=== PATIENT | male | born 1945 | race Caucasian/White ===

== ENCOUNTER 2016-06-01 04:15 | Observation (INO) | payer MEDICARE, OTHER ==
[2016-06-01] MEDS ORDERED: Ondansetron INJ* 2 MG/ML VIAL IV PRN (04:44)
[2016-06-01] MEDS ORDERED: Acetaminophen TAB* 325 MG PO PRN (04:44)
[2016-06-01] MEDS ORDERED: Melatonin (NF) 3 MG TAB PO PRN (04:44)
[2016-06-01] MEDS ORDERED: NS 0.9% 1000 ML* 1,000 ML IV SCH (04:45)
[2016-06-01 05:14] LABS: Troponin I 0.02 ng/mL (<0.04)
[2016-06-01] MEDS: Aspirin Low Dose CHEW TAB* 81 MG PO SCH ×2 (06:08→07:28)
--- NOTE | 2016-06-01 06:37 | HP ---
H&P (Free Text) History and Physical: PCP: Pollo Colvin MD Date/Time of Evaluation: 06/01/2016 CC: chest pressure HPI: Mr Gutierrez is a morbidly obese male HX HTN not currently on medication who was playing cards last night around 2229 when he began having what he thought was indigestion with bloating & belching. He took Tums without relief. By 2329 he was noticing a sensation like "being bear hugged" which radiated through to the mid-scapular area. He admits to some mild SOB, but no N/V, sweats, palpitations, or light-headedness. By 99 the pressure sensation was rated at 8 /10 and he awoke his asking her to take him to the ED which is out of character. Upon arrival to [place] ED, he was given a GI cocktail w/o improvement followed by an 81mg chewable and a total of 3 SL nitroglycerin. He reports the 2nd nitro brought his pain down to a 5-6 with the 3rd completely alleviating his pain. His presenting BP there was 218/107, currently 130-140s systolic. Troponin at [place] was 0.02. Given the suspicion of ACS and lack of specialized services a request was made to transfer for further evaluation. Upon arrival to [facility], Mr Gutierrez remains symptom free. He does relate the he and his took a walk yesterday in which he was "more winded" than usual, but did not experience any cardiac symptoms. ECG at [place] showed biphasic T- waves in V2-[address] depression without definitive ST depressions and repeat here appears similar. Repeat troponin here remains 0.02. PMedHx HTN, not currently on meds morbid obesity R meniscal tear Allergies No Known Allergies Allergy (Verified 06/01/16 04:36) Ambulatory Orders Aspirin EC Low Dose* [Ecotrin EC Low Dose 81 MG*] 81 mg PO DAILY 06/01/16 Multiple Vitamin [Multi Vitamin] 1 tab PO DAILY 06/01/16 PSurgHx R knee arthroscopic meniscal repair SocHx: former light smoker, former heavy drinker, no recreational drugs; lives with his ; retired from [employer]; full code status FamHx: positive for sick sinus syndrome in both Mother & Father ROS: as above, otherwise reviewed and all were negative Constitutional: NAD, normally developed, morbidly obese white male vitals: Vital Signs Temp 37.1 C 06/01/16 04:24 Pulse 79 06/01/16 05:00 Resp 16 06/01/16 05:00 BP 141/78 06/01/16 05:00 Pulse Ox 95 06/01/16 05:00 Intake & Output 05/31/16 05/31/16 06/01/16 11:59 23:59 11:59 Weight 131.542 kg HEENM: atraumatic; sclera/conjunctiva: non-icteric/clear; hearing: clinically intact; oropharynx: clear, mucosa moist Neck: soft tissue: non-tender; thyroid: normal Pulmonary: clear to auscultation bilaterally, good aeration, no accessory muscle use CV: RR/RR, normal S1S2, no carotid bruit, no jugular venous distention, 2+ B DP/ PT, no edema Abdominal: soft, non-distended, non-tender, no rebound/guarding/rigidity, normoactive bowel sounds, no hepatosplenomegaly or masses, no costovertebral angle tenderness Musculoskeletal: general: grossly intact; gait: stable Integumental: normal appearance and texture, numerous skin tags Psychiatric orientation: AA&O to PPS affect: calm mood: pleasant eye contact: good content: reliable but minimizes responses: timely insight: good Testing: Lab Results 06/01/16 Range/Units 04:45 Total Creatine Kinase 148 (10-223) U/L CK-MB (CK-2) 4.7 (0.6-6.3) ng/mL Troponin I 0.02 (<0.04) ng/mL ECG, personally reviewed: NSR rate 78, biphasic T waves V2-5 w/o ST depression CXR ([place]): films currently unavailable for review, CD given to ICU charge to be sent for loading into PACS CT chest W/WO ([place]): films currently unavailable for review, CD given to ICU charge to be sent for loading into PACS Impression: 70M morbidly obese, HTN transferred from [place] ED for chest pain r/o ACS DIAGNOSIS & PLAN Primary chest pain r/o ACS : telemetry : trend troponin : give additional 243mg chewable aspirin : given duration of significant chest pain w/o troponin elevation & currently controlled BP, will hold beta johana & heparin GTT : supplemental oxygen : consider cardiology consult in AM : supportive care HTN : currently controlled : monitor & initiate medication as indicated Admission Rational: CDU observation for chest pain r/o ACS DVTp: heparin SQ Code Status: full HCP:
[2016-06-01] MEDS ORDERED: Pantoprazole IV* 40 MG IV SCH (09:00)
[2016-06-01] MEDS ORDERED: Aspirin TAB* 325 MG PO SCH (09:00)
[2016-06-01] MEDS ORDERED: Docusate CAP* 100 MG PO SCH (09:00)
[2016-06-01 09:21] VITALS: BP 131/68
[2016-06-01 11:42] LABS: Hematocrit 43 % (42-52); Hemoglobin 14.7 g/dl (14.0-18.0); Mean Corpuscular HGB Conc 34 g/dl (31-36); Mean Corpuscular Hemoglobin 32 pg (27-31); Mean Corpuscular Volume 94 fL (80-94); Mean Platelet Volume 8 um3 (7.4-10.4); Red Blood Count 4.55 10^6/ul (4.0-5.4); Red Cell Distribution Width 15 % (10.5-15); White Blood Count 8.6 10^3/ul (3.5-10.8)
[2016-06-01 11:53] LABS: BUN/Creatinine Ratio 15.3 (8-20); Calcium 8.9 mg/dL (8.6-10.3); EGFR African American 97.5 (>60); EGFR Non-African American 75.8 (>60); Potassium 3.2 mmol/L (3.5-5.0)
[2016-06-01 11:56] LABS: Troponin I 0.01 ng/mL (<0.04)
[2016-06-01] MEDS ORDERED: Potassium Chlor TAB* 10 MEQ TAB.ER PO ONE (12:05)
[2016-06-01 12:51] LABS: Magnesium 2.3 mg/dL (1.9-2.7)
[2016-06-02] MEDS ORDERED: Heparin VIAL(*) 5000 UNITS/ML VIAL (FIVE THOUSAND) SUBCUT SCH (06:00)
--- NOTE | 2016-06-02 06:56 | DS ---
DISCHARGE SUMMARY: DATE OF ADMISSION: 06/01/16 DATE OF DISCHARGE: 06/01/16 HOSPITAL STATUS: Observation on clinical decision unit. PRIMARY PROVIDER: Noble Aguilar NP ATTENDING PHYSICIAN: Dr. Newman* (report dictated by Noble Aguilar NP). PRIMARY CARE PROVIDER: Dr. Colvin. DISCHARGE DIAGNOSES: 1. Chest pain, unclear etiology, acute coronary syndrome ruled out. 2. Hypokalemia. 3. Obesity. SECONDARY DIAGNOSES: 1. Status post right meniscal tear repair. 2. Hypertension ?, currently not on meds and noted to be normotensive throughout hospitalization. DISCHARGE MEDICATIONS: 1. Aspirin 81 mg daily. 2. Multivitamin 1 tab p.o. daily. HISTORY OF PRESENT ILLNESS AND HOSPITAL COURSE: Please see history and physical by Dr. Clarke for full admission details, but in summary, this is a 70-year-old male with a past medical history of morbid obesity, who presented initially to [facility] after he developed chest pain last evening around 11:30. The patient was transferred to [facility] for concern for acute coronary syndrome. The patient reports that last night, he had "indigestion" after he ate with bloating and belching. He reports he took a Tums without relief. He then tried to go to bed, but had such discomfort with a sensation like "being bear hugged" radiating through his midscapular area. He decided to go to the emergency department. He reported some mild shortness of breath, but denied any nausea, vomiting, diaphoresis, palpitations , or lightheadedness. In the emergency department at [facility], he was a GI cocktail as well as 3 sublingual nitroglycerin and he reports that he is not sure which one resolved his symptoms. He was noted to be hypertensive in [facility] with a blood pressure of 218/107; however, by the time he was transferred to [facility], his blood pressures were systolically in the 130s and have remained systolically in the 120s to 140s. The patient has not had any return of his chest pain since in the [facility]. His initial troponin at [facility] was 0.02 and on recheck at [facility] was 0.02. He had a third troponin which was 0.01. His EKG at [facility] showed biphasic T waves in V2, V6 without definitive ST depressions and repeat in the emergency department appeared similar. Repeat EKG this morning appeared similar with no acute changes. He is noted to have a right bundle branch block on all his EKGs. The patient has been asymptomatic since arrival to [facility]. His ANGIE score is 2. His only risk factor being his age and his obesity. The patient reports possibly a history of hypertension, but is not on medication and is noted to be normotensive with blood pressures between the 120s and 130s with a few systolically in the 140s. I did discuss with him that his primary should follow up on this. If it continues to be above 140, he should start medication. The patient will be scheduled for an outpatient stress test on Friday. The patient was known to have a potassium of 3.2. He is given replacement. He is instructed when he returns for his stress test to recheck his potassium level with results sent to the primary care provider. The patient is stable for discharge to home. He has been chest pain-free since prior to admission with no elevated troponin x3 and no EKG changes. The patient has ambulated around the unit without any symptoms. DISCHARGE PLAN: 1. Plan for Stress Test on Friday. The patient was instructed to return to the ED if he has any further or concerning symptoms 2. Follow-up with PCP this week. Time Spent: 60 minutes was spent on this discharge. NOBLE AGUILAR NP CC: Dr. Colvin* [id number]/[facility] #: [id number] FLOR
[2016-06-02] MEDS ORDERED: Aspirin TAB* 325 MG PO SCH (09:00)
== END 2016-06-01 15:40 | disposition home or self-care (01) ==
LOC: ED 04:15 → ICU 04:47 → UNDOADMOB 05:04 → UNDODISOB 15:40
PROVIDERS: ADMIT Hospitalist; ATTEND Internal Medicine
DX: R07.9 Chest pain, unspecified (principal); E87.6 Hypokalemia; E66.9 Obesity, unspecified; I10 Essential (primary) hypertension; R94.31 Abnormal electrocardiogram [ECG] [EKG]; R06.02 Shortness of breath; I45.10 Unspecified right bundle-branch block; Z79.82 Long term (current) use of aspirin; Z79.899 Other long term (current) drug therapy; Z87.891 Personal history of nicotine dependence
CPT/HCPCS: 36415; 80048; 82550; 82553; 83735; 84484; 85025; 93005; 96374; 99283; A9270-GY; G0378

== ENCOUNTER 2022-01-11 10:20 | Inpatient (IN) ==
[2022-01-11 12:41] LABS: ABS Eosinophils 0.2 10^3/ul (0-0.6); ABS Lymphocytes 0.6 10^3/ul (1.0-4.8); ABS Monocytes 0.7 10^3/ul (0-0.8); ABS Neutrophils 4.4 10^3/ul (1.5-7.7); Eosinophil % 2.8 %; Hematocrit 34 % (42-52); Hemoglobin 11.2 g/dL (14.0-18.0); Lymphocyte % 10.5 %; Mean Corpuscular HGB Conc 33 g/dL (31-36); Mean Corpuscular Hemoglobin 34 pg (27-31); Mean Corpuscular Volume 102 fL (80-94); Mean Platelet Volume 6.5 fL (7.4-10.4); Platelet Count 229 10^3/uL (150-450); Red Blood Count 3.29 10^6 /uL (4.18-5.48); Red Cell Distribution Width 16 % (10-15); White Blood Count 5.9 10^3/uL (3.5-10.8)
[2022-01-11 13:02] LABS: INR 1.29 (0.89-1.11)
[2022-01-11 13:25] LABS: ALT 28 U/L (7-52); AST 40 U/L (13-39); Albumin/Globulin Ratio 1.4 (1-3); Alkaline Phosphatase 219 U/L (35-149); Anion Gap 6 mmol/L (2-11); Blood Urea Nitrogen 19 mg/dL (6-24); CO2 Carbon Dioxide 30 mmol/L (22-32); Calcium 9.1 mg/dL (8.6-10.3); Chloride 103 mmol/L (101-111); Globulin 2.2 g/dL (2-4); Glucose 84 mg/dL (70-100); Potassium 3.5 mmol/L (3.5-5.0); Sodium 139 mmol/L (135-145); Total Protein 5.2 g/dL (6.4-8.9); eGFR CKD-EPI 48.6 (>60)
[2022-01-11] MEDS ORDERED: Haloperidol 5 mg/ml SDV IV/IM 5 MG/ML AMP IM ONE (14:13)
[2022-01-11 17:36] LABS: Urine Appearance Clear; Urine Bilirubin Negative (Negative); Urine Blood 3+ (Negative); Urine Color Yellow; Urine Glucose Negative (Negative); Urine Ketones Negative (Negative); Urine Nitrite Negative (Negative); Urine Protein Negative (Negative); Urine Specific Gravity 1.012 (1.002-1.030); Urine Urobilinogen Negative (Negative)
[2022-01-11 18:13] LABS: Urine Bacteria Absent (Absent); Urine Red Blood Cell 3+(>10/hpf) (Absent); Urine Squamous Epithelial Cell Present (Absent); Urine White Blood Cell Trace(0-5/hpf) (Absent)
[2022-01-11] MEDS ORDERED: Furosemide 20 mg/2 ml IV VIAL IV SLOW PU ONE (21:30)
[2022-01-11] MEDS ORDERED: Magnesium Sulfate 2 gm BAG 2 GM/50 ML BAG IVPB ONE (21:41)
[2022-01-11] MEDS ORDERED: cefTRIAXone 1 gm/50 mL D5W 1 GM/50 ML BAG IV SCH (22:15)
[2022-01-11 22:16] LABS: C Reactive Protein 16.53 mg/L (<8.01)
[2022-01-12 00:56] LABS: Folate 13.97 ng/mL (5.90-24.80)
[2022-01-12 00:57] LABS: Vitamin B12 > 1450 pg/mL (180-914)
[2022-01-12] MEDS: Enoxaparin 40 MG/0.4 ML SYR SUBCUT SCH ×2 (01:16→21:44)
[2022-01-12] MEDS ORDERED: cefTRIAXone 1 gm/50 mL D5W 1 GM/50 ML BAG IV ONE (01:46)
[2022-01-12 02:55] LABS: Urine Potassium Concentration 21.1 mmol/L
[2022-01-12 03:43] LABS: Alcohol, S < 13 mg/dL (<13)
[2022-01-12 04:18] LABS: Urine Benzodiazepine Screen None Detected (None Detect); Urine Cannabinoids Screen None Detected (None Detect); Urine Opiates Screen None Detected (None Detect)
[2022-01-12 06:37] LABS: Hematocrit 31 % (42-52); Hemoglobin 10.8 g/dL (14.0-18.0); Mean Corpuscular HGB Conc 35 g/dL (31-36); Mean Corpuscular Hemoglobin 35 pg (27-31); Mean Corpuscular Volume 102 fL (80-94); Mean Platelet Volume 6.5 fL (7.4-10.4); Platelet Count 265 10^3/uL (150-450); Red Blood Count 3.06 10^6 /uL (4.18-5.48); Red Cell Distribution Width 16 % (10-15); White Blood Count 9.3 10^3/uL (3.5-10.8)
[2022-01-12 07:28] LABS: Albumin/Globulin Ratio 1.4 (1-3); Calcium 9.2 mg/dL (8.6-10.3); Globulin 2.2 g/dL (2-4); Potassium 3.7 mmol/L (3.5-5.0); Total Bilirubin 1.9 mg/dL (0.2-1.0); Total Protein 5.2 g/dL (6.4-8.9); eGFR CKD-EPI 39.8 (>60)
[2022-01-12] MEDS ORDERED: Lactulose 30 ml UDC PO SCH (09:00)
[2022-01-12] MEDS ORDERED: Lactated Ringers 500 ml BAG 500 ML IV SCH (10:00)
[2022-01-12] MEDS: Lactulose 30 ml UDC PO SCH ×4 (11:57→21:44)
[2022-01-12 14:03] LABS: Calcium 9.4 mg/dL (8.6-10.3); Potassium 3.7 mmol/L (3.5-5.0); eGFR CKD-EPI 36.1 (>60)
[2022-01-12] MEDS ORDERED: cefTRIAXone 1 gm/50 mL D5W 1 GM/50 ML BAG IV SCH (15:30)
[2022-01-12] MEDS: Albumin Human 25% 25 GM/100 ML BTL IV SCH ×4 (16:21→19:26)
[2022-01-12] MEDS ORDERED: Lidocaine 1% MPF 5 ML VIAL INJ ONE (16:38)
[2022-01-12] MEDS: cefTRIAXone 1 gm/50 mL D5W 1 GM/50 ML BAG IV SCH (21:43)
[2022-01-12 22:26] LABS: Calcium 9.4 mg/dL (8.6-10.3); Potassium 3.4 mmol/L (3.5-5.0); eGFR CKD-EPI 35.2 (>60)
[2022-01-13 05:59] LABS: ABS Eosinophils 0.2 10^3/ul (0-0.6); ABS Lymphocytes 0.7 10^3/ul (1.0-4.8); ABS Monocytes 0.8 10^3/ul (0-0.8); ABS Neutrophils 3.7 10^3/ul (1.5-7.7); Eosinophil % 2.8 %; Hematocrit 27 % (42-52); Hemoglobin 9.2 g/dL (14.0-18.0); Lymphocyte % 13.8 %; Mean Corpuscular HGB Conc 34 g/dL (31-36); Mean Corpuscular Hemoglobin 35 pg (27-31); Mean Corpuscular Volume 102 fL (80-94); Mean Platelet Volume 6.9 fL (7.4-10.4); Platelet Count 193 10^3/uL (150-450); Red Blood Count 2.64 10^6 /uL (4.18-5.48); Red Cell Distribution Width 16 % (10-15); White Blood Count 5.4 10^3/uL (3.5-10.8)
[2022-01-13 06:20] LABS: Albumin 3.4 g/dL (3.2-5.2); Calcium 9.5 mg/dL (8.6-10.3); Globulin 1.7 g/dL (2-4); Magnesium 2.3 mg/dL (1.9-2.7); Potassium 3.3 mmol/L (3.5-5.0); Total Bilirubin 1.6 mg/dL (0.2-1.0); Total Protein 5.1 g/dL (6.4-8.9); eGFR CKD-EPI 39.6 (>60)
[2022-01-13] MEDS ORDERED: Potassium Chlor 20 meq TAB.ER PO ONE (07:16)
[2022-01-13] MEDS: Lactulose 30 ml UDC PO SCH ×3 (09:45→21:13)
[2022-01-13] MEDS: cefTRIAXone 1 gm/50 mL D5W 1 GM/50 ML BAG IV SCH ×2 (09:45→19:54)
[2022-01-13 10:21] LABS: C Reactive Protein 37.37 mg/L (<8.01)
[2022-01-13] MEDS ORDERED: Lidocaine 1% VIAL 10 MG/ML VIAL 30 ML INJ ONE (11:22)
[2022-01-13] MEDS ORDERED: Potassium Chloride LIQUID 20 MEQ/15 ML LIQUID PO ONE (12:00)
[2022-01-13 12:16] LABS: INR 1.42 (0.89-1.11)
[2022-01-13 17:11] LABS: Body Fluid Appearance Clear; Body Fluid Color Yellow; Body Fluid Source Peritonial Fluid
[2022-01-13 17:14] LABS: Body Fluid WBC 23.9 /mcL
[2022-01-13 19:55] LABS: Body Fluid Mono 87 %; Body Fluid Total Cells Counted 200
[2022-01-13] MEDS: Enoxaparin 40 MG/0.4 ML SYR SUBCUT SCH (21:11)
[2022-01-13] MEDS: Pantoprazole VIAL 40 MG VIAL IV SCH (21:13)
[2022-01-14 06:51] LABS: ABS Eosinophils 0.3 10^3/ul (0-0.6); ABS Lymphocytes 0.8 10^3/ul (1.0-4.8); ABS Monocytes 0.7 10^3/ul (0-0.8); ABS Neutrophils 3.7 10^3/ul (1.5-7.7); Eosinophil % 5.4 %; Hematocrit 31 % (42-52); Hemoglobin 10.7 g/dL (14.0-18.0); Lymphocyte % 14.9 %; Mean Corpuscular HGB Conc 35 g/dL (31-36); Mean Corpuscular Hemoglobin 35 pg (27-31); Mean Corpuscular Volume 103 fL (80-94); Mean Platelet Volume 6.8 fL (7.4-10.4); Platelet Count 203 10^3/uL (150-450); Red Blood Count 3.01 10^6 /uL (4.18-5.48); Red Cell Distribution Width 16 % (10-15); White Blood Count 5.6 10^3/uL (3.5-10.8)
[2022-01-14 07:10] LABS: Albumin 3.1 g/dL (3.2-5.2); Albumin/Globulin Ratio 1.7 (1-3); Calcium 9.6 mg/dL (8.6-10.3); Globulin 1.8 g/dL (2-4); Magnesium 2.4 mg/dL (1.9-2.7); Potassium 3.5 mmol/L (3.5-5.0); Total Bilirubin 1.4 mg/dL (0.2-1.0); Total Protein 4.9 g/dL (6.4-8.9)
[2022-01-14] MEDS: Lactulose 30 ml UDC PO SCH ×3 (10:12→21:40)
[2022-01-14] MEDS: Pantoprazole VIAL 40 MG VIAL IV SCH ×2 (10:12→20:41)
[2022-01-14] MEDS: cefTRIAXone 1 gm/50 mL D5W 1 GM/50 ML BAG IV SCH (10:16)
[2022-01-14] MEDS: Heparin 5000 UNITS/ML 1 mL VIAL SUBCUT SCH (20:41)
[2022-01-15 06:18] LABS: Hematocrit 33 % (42-52); Hemoglobin 10.9 g/dL (14.0-18.0); Mean Corpuscular HGB Conc 33 g/dL (31-36); Mean Corpuscular Hemoglobin 34 pg (27-31); Mean Corpuscular Volume 103 fL (80-94); Mean Platelet Volume 6.9 fL (7.4-10.4); Platelet Count 196 10^3/uL (150-450); Red Blood Count 3.21 10^6 /uL (4.18-5.48); Red Cell Distribution Width 17 % (10-15); White Blood Count 5.8 10^3/uL (3.5-10.8)
[2022-01-15 06:48] LABS: Albumin/Globulin Ratio 1.7 (1-3); Calcium 9.4 mg/dL (8.6-10.3); Globulin 1.8 g/dL (2-4); Magnesium 2.2 mg/dL (1.9-2.7); Potassium 3.4 mmol/L (3.5-5.0); Total Bilirubin 1.5 mg/dL (0.2-1.0); Total Protein 4.8 g/dL (6.4-8.9); eGFR CKD-EPI 40.4 (>60)
[2022-01-15] MEDS: Heparin 5000 UNITS/ML 1 mL VIAL SUBCUT SCH ×2 (08:45→22:19)
[2022-01-15] MEDS: Lactulose 30 ml UDC PO SCH ×3 (08:47→22:20)
[2022-01-15] MEDS: Pantoprazole VIAL 40 MG VIAL IV SCH ×2 (09:00→22:18)
[2022-01-15] MEDS ORDERED: D5W 1000 ml BAG 1,000 ML IV SCH (12:00)
[2022-01-15 13:11] LABS: Albumin, BF 0.9 g/dL; Fluid Type, Albumin PERITONEAL; Fluid Type, Protein, Total PERITONEAL; Glucose, BF 94 mg/dL; Total Protein, BF 1.6 g/dL
[2022-01-16 07:20] LABS: Albumin 3.1 g/dL (3.2-5.2); Albumin/Globulin Ratio 1.6 (1-3); Calcium 9.3 mg/dL (8.6-10.3); Potassium 3.3 mmol/L (3.5-5.0); Total Bilirubin 1.9 mg/dL (0.2-1.0); Total Protein 5.1 g/dL (6.4-8.9); eGFR CKD-EPI 38.3 (>60)
[2022-01-16] MEDS ORDERED: KCL 20 MEQ/100 ML IVPREMIX 20 MEQ/100 ML BAG IV ONE (07:31)
[2022-01-16] MEDS: Lactulose 30 ml UDC PO SCH ×3 (08:51→17:49)
[2022-01-16] MEDS: Heparin 5000 UNITS/ML 1 mL VIAL SUBCUT SCH ×2 (08:57→20:58)
[2022-01-16] MEDS: Pantoprazole VIAL 40 MG VIAL IV SCH (08:59)
[2022-01-17] MEDS: Nystatin TOP POWDER 15 GM BTL TOPICAL SCH ×3 (02:31→22:17)
[2022-01-17] MEDS: Lactulose 30 ml UDC PO SCH ×3 (06:39→17:01)
[2022-01-17] MEDS ORDERED: Potassium Chlor 20 meq TAB.ER PO ONE (07:16)
[2022-01-17 08:43] LABS: ABS Eosinophils 1.2 10^3/ul (0-0.6); ABS Lymphocytes 0.9 10^3/ul (1.0-4.8); ABS Monocytes 0.6 10^3/ul (0-0.8); ABS Neutrophils 3.8 10^3/ul (1.5-7.7); Eosinophil % 18.9 %; Hematocrit 31 % (42-52); Hemoglobin 10.8 g/dL (14.0-18.0); Lymphocyte % 13.7 %; Mean Corpuscular HGB Conc 35 g/dL (31-36); Mean Corpuscular Hemoglobin 35 pg (27-31); Mean Corpuscular Volume 102 fL (80-94); Mean Platelet Volume 6.9 fL (7.4-10.4); Nucleated Red Blood Cells % 0.1; Platelet Count 166 10^3/uL (150-450); Red Blood Count 3.06 10^6 /uL (4.18-5.48); Red Cell Distribution Width 17 % (10-15); White Blood Count 6.6 10^3/uL (3.5-10.8)
[2022-01-17 09:01] LABS: Albumin 2.9 g/dL (3.2-5.2); Albumin/Globulin Ratio 1.7 (1-3); Calcium 9.4 mg/dL (8.6-10.3); Globulin 1.7 g/dL (2-4); Potassium 3.5 mmol/L (3.5-5.0); Total Bilirubin 1.9 mg/dL (0.2-1.0); Total Protein 4.6 g/dL (6.4-8.9); eGFR CKD-EPI 36.8 (>60)
[2022-01-17] MEDS: Heparin 5000 UNITS/ML 1 mL VIAL SUBCUT SCH ×2 (09:39→22:16)
[2022-01-17 18:22] LABS: Urine Appearance Clear; Urine Bilirubin Negative (Negative); Urine Blood 2+ (Negative); Urine Color Yellow; Urine Glucose Negative (Negative); Urine Ketones Negative (Negative); Urine Nitrite Negative (Negative); Urine Protein Negative (Negative); Urine Urobilinogen Negative (Negative)
[2022-01-17 18:48] LABS: Urine Bacteria Absent (Absent); Urine Red Blood Cell 1+(3-5/hpf) (Absent); Urine Squamous Epithelial Cell Present (Absent); Urine White Blood Cell Trace(0-5/hpf) (Absent)
[2022-01-18] MEDS: Lactulose 30 ml UDC PO SCH ×2 (00:57→06:01)
[2022-01-18 06:01] LABS: Hematocrit 35 % (42-52); Hemoglobin 11.8 g/dL (14.0-18.0); Mean Corpuscular HGB Conc 34 g/dL (31-36); Mean Corpuscular Hemoglobin 35 pg (27-31); Mean Corpuscular Volume 103 fL (80-94); Mean Platelet Volume 6.6 fL (7.4-10.4); Platelet Count 171 10^3/uL (150-450); Red Blood Count 3.43 10^6 /uL (4.18-5.48); Red Cell Distribution Width 17 % (10-15); White Blood Count 6.7 10^3/uL (3.5-10.8)
[2022-01-18 06:45] LABS: Calcium 9.6 mg/dL (8.6-10.3); Magnesium 1.9 mg/dL (1.9-2.7); Potassium 3.6 mmol/L (3.5-5.0); eGFR CKD-EPI 35.9 (>60)
[2022-01-18] MEDS ORDERED: Lactulose 30 ml UDC PO PRN (07:42)
[2022-01-18] MEDS ORDERED: Magnesium Sulfate 2 gm BAG 2 GM/50 ML BAG IVPB ONE (09:43)
[2022-01-18] MEDS: Nystatin TOP POWDER 15 GM BTL TOPICAL SCH (11:50)
[2022-01-18] MEDS: Heparin 5000 UNITS/ML 1 mL VIAL SUBCUT SCH (11:59)
[2022-01-18 15:40] LABS: Zinc, S 32 mcg/dL (60-106)
[2022-01-18 19:23] VITALS: BP 155/81
[2022-01-26 12:57] LABS: Body Fluid Bilirubin < 0.1 mg/dL; Fluid Type PERITONEAL
== END 2022-01-18 19:30 | disposition short-term general hospital (02) | DRG 71 ==
LOC: ED 10:20 → SUATTDRO 20:06 → EDHOLD 20:06 → MED 22:09
PROVIDERS: ADMIT Hospitalist; ATTEND Internal Medicine